=== PATIENT | female | born 1950 | race Caucasian/White ===

== ENCOUNTER 2024-06-20 11:03 | Emergency (ER) | payer BC ==
[~2024-06-20] VITALS: Ht 154.9 cm; Wt 69.0 kg
[2024-06-20 11:22] VITALS: BP 167/60; PULSE 71; RESP 16; TEMP 98.6; O2SAT 97
== END 2024-06-20 13:49 | disposition home or self-care (01) ==
LOC: ER 11:04
DX: M25.561 Pain in right knee (principal); Z88.8 Allergy status to other drugs, medicaments and biological substances; Z91.041 Radiographic dye allergy status; Z90.710 Acquired absence of both cervix and uterus; Z98.890 Other specified postprocedural states; Z88.5 Allergy status to narcotic agent
CPT/HCPCS: 73564; 99283